=== PATIENT | female | born 2000 | race Caucasian/White ===

== ENCOUNTER 2021-04-06 15:26 | Emergency (ER) | payer OTHER ==
[~2021-04-06] VITALS: Ht 174 cm; Wt 70.8 kg
[2021-04-06 16:35] VITALS: BP 126/67
--- NOTE | 2021-04-06 16:38 | NUR ---
URINE SPECIMEN IN [facility]TY [facility]ILITY
[2021-04-06] MEDS ORDERED: MORPHINE SULFATE 4 MG/ML SYR IM ONE (17:45)
[2021-04-06] MEDS ORDERED: ONDANSETRON 4 MG ODT PO ONE (17:45)
[2021-04-06 18:31] LABS: BASOPHILS % (AUTO) 0.4 % (0.0-2.0); EOSINOPHILS % (AUTO) 0.5 % (0.0-4.0); HEMATOCRIT 39.6 % (36-48); HEMOGLOBIN 13.4 g/dL (12.0-16.0); LYMPHOCYTES # (AUTO) 2.5 K/uL (2.5-16.5); LYMPHOCYTES % (AUTO) 33.1 % (20.5-51.1); MEAN CORPUSCULAR HEMOGLOBIN 27 pg (27-31); MEAN CORPUSCULAR HGB CONC 34 g/dL (33-37); MEAN CORPUSCULAR VOLUME 79.9 fL (80-94); MONOCYTES # (AUTO) 0.3 K/uL (0.8-1.0); MONOCYTES % (AUTO) 4.3 % (1.7-9.3); NEUTROPHILS # (AUTO) 4.7 K/uL (1.8-7.7); NEUTROPHILS % (AUTO) 61.7 % (42.2-75.2); PLATELET COUNT (AUTO) 280 K/uL (140-450); RED BLOOD CELL COUNT(AUTO) 4.96 MIL/uL (4.20-5.40); RED CELL DISTRIBUTION WIDTH 13.5 % (11.6-13.7); WHITE BLOOD COUNT (AUTO) 7.6 K/uL (4.5-11.0)
[2021-04-06 18:51] LABS: ANION GAP 14.9 (8-16); CARBON DIOXIDE 26.1 mmol/L (21-32); CREATININE 0.6 mg/dL (0.6-1.3)
[2021-04-06 18:59] LABS: ALBUMIN 4.5 g/dL (3.4-5.0); BILIRUBIN,DIRECT 0.1 mg/dL (0.0-0.3); TOTAL BILIRUBIN 0.9 mg/dL (0.0-1.0)
--- NOTE | 2021-04-06 23:20 | NUR ---
seen and examined by MAYLIN
[2021-04-06 23:30] VITALS: BP 119/73
--- NOTE | 2021-04-06 23:30 | NUR ---
Patient discharged with v/s stable. Written and verbal after care instructions given and explained. Patient verbalized understanding. Ambulatory with steady gait. All questions addressed prior to discharge. Advised to follow up with PMD.
== END 2021-04-06 23:30 | disposition home or self-care (01) ==
LOC: EDBD 15:26 → MED 15:26
DX: R10.31 Right lower quadrant pain (principal); R11.0 Nausea
CPT/HCPCS: 36415; 74176; 80048; 80076; 81002; 81025; 83690; 85025; 96372; 99284; J2270; Q0162